=== PATIENT | female | born 1980 | race Hispanic/Latino ===

== ENCOUNTER 2018-11-22 11:41 | Emergency (ER) | payer BC ==
[~2018-11-22] VITALS: Ht 170.2 cm; Wt 59.0 kg
--- OUTSIDE RECORDS SUMMARY | 2018-11-22 11:44 | XMS REPORT | Summary of Care ---
Author Author JORDAN ANDERSEN M.D. Organization Unknown Address [facility] Phone Unavailable Care Team Providers Care Oil Field Rig Builder Name Role Phone JORDAN ANDERSEN M.D. 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 * Start : 20-Jul-2014 Active Escitalopram Oxalate 10 MG Oral Tablet TAKE 1 TABLET DAILY. * Quantity: 90 Refills: 1 JORDAN ANDERSEN M.D. * Start : 20-Jul-2014 Active Tecfidera * Refills: 0 Active Allergies and Adverse Reactions Name Dates Details No Known Drug Allergies (Allergy) Status: Active Procedures Procedure Dates Details History of Appendectomy Completed Immunization Name Dates Details Immunizations not documented Family History Name Dates Details Family history of hypertension (V17.49, Z82.49) Status: Active Name Dates Details Family history of cardiac disorder (V17.49, Z82.49) Status: Active Social History Name Dates Details - Status: Name Dates Details Never smoker Vital Signs Date Test Result Details No Known Vitals to report Results Date Description Value Details Results not documented Plan of Care Name Dates Details Planned Observations Planned Goals not documented Instructions Name Dates Details Instructions not documented Encounters Appointment; DIPTI CHAVIRA M.D. Encounter Diagnosis: Problem not documented On: 20-Feb-2016 10:30 Appointment; DIPTI CHAVIRA M.D. Encounter Diagnosis: Problem not documented On: 19-Mar-2016 9:00 Appointment; DIPTI CHAVIRA M.D. Encounter Diagnosis: Problem not documented On: 02-Apr-2016 17:00 Appointment; JORDAN ANDERSEN M.D. Encounter Diagnosis: Problem not documented On: 06-Oct-2017 14:30
--- OUTSIDE RECORDS SUMMARY | 2018-11-22 11:44 | XMS REPORT ---
Author Author Nayana Chin Organization [employer] Address Unknown Phone Unavailable Care Team Providers Care Fleet Service Clerk Name Role Phone Nayana Chin Unavailable Allergies, Adverse Reactions, Alerts Substance Reaction Event Type N.K.D.A. Info Not Available Non Drug Allergy Problems Problem Type Condition Code Onset Dates Condition Status Problem Multiple sclerosis G35 Active Problem Low vitamin D level E55.9 Active Problem Anxiety F41.9 Active Assessment Anxiety F41.9 Active Assessment Low vitamin D level E55.9 Active Assessment Multiple sclerosis G35 Active Medications Medication Code System Code Instructions Start Date End Date Status Dosage Tecfidera ND 42241872521 240 MG Orally Twice a day Active 1 capsule Lexapro [facility] 83477443109 10 MG Orally Once a day Active 1 tablet Ergocalciferol [facility] 59914837934 84437 UNIT Orally once a week August 20, 2017 November 18, 2017 Active 1 capsule Vital Signs Date/Time: August 20, 2017 BMI 24.18 Index Weight 154.4 lbs Height 67 in Temperature 98.3 F Cardiac Monitoring Heart Rate 74 /min Blood Pressure Diastolic 79 mm Hg Blood Pressure Systolic 119 mm Hg Results No Known Results Summary Purpose [employer] Submission
--- OUTSIDE RECORDS SUMMARY | 2018-11-22 11:44 | XMS REPORT | Encounter Summary ---
Author Organization Unknown Address [address] [place] [id number] Phone [phone] Reason for Visit Medical Complaint Instructions 1. Dizziness dizziness: care instructions 2. Unsteady gait Discussion Note: None recorded. Plan of Care Reminders Provider Appointments None recorded. Lab None recorded. Referral None recorded. Procedures None recorded. Surgeries None recorded. Imaging None recorded. Medications Name Start Date escitalopram 10 mg tablet TK 1 T PO QD Tecfidera 240 mg capsule,delayed release Medications Administered None recorded. Vitals Height Weight BMI Blood Pressure 5 ft 7 in 137 lbs 21.5 kg/m2 102/70 mm[Hg] Lab Results None recorded. Allergies Code Code System Name Reaction Severity Status Onset NKDA Problems Name Status Onset Date Source Multiple Sclerosis Active 11/16/2018 Procedures Date Name Performed by Appendectomy Information not available Vaccine List None recorded. Social History Smoking Status Never Smoker Past Encounters 11/16/2018 Dizziness; Unsteady Gait Renetta Salazar [facility]-C: [address] [place] [address], Ph. History of Present Illness Sqzid-Dxjjirziia-Pvewcvh Reported By: Patient HPI: Location: ; dizziness and unsteady gait occurs intermittently througout the day and might last from mintues to the whole day. Symptoms got worse last 2 days and occurs even when sitting at rest. Quality: ; denies nasal congestion. Duration: 4days. Onset/Timing: gradual. Context: no sick contacts, non-smoker. Associated Symptoms: no shortness of breath, no wheezing, no vomiting, no diarrhea, no rash, no fever, no muscle aches, no headache Review of Systems:ROS as noted in the HPI Review of Systems Basic Reported By: Patient Physical Exam Adult Basic, Adult Female Complete Reported By: Patient Constitutional: General Appearance: well-nourished, well-developed. Level of Distress: NAD. Ambulation: ambulating normally Psychiatric: Mental Status: active and alert. Orientation: to time, to place, to person Kei-Spwo-Yipyo-Throat: Ears: no lesions on external ear, no outer ear tenderness, EACs clear, TMs clear. Hearing: hearing decreased. Nose: no lesions on external nose, nares patent, no septal deviation, nasal passages clear, no sinus tenderness, no nasal discharge. Oropharynx: moist mucous membranes, no erythema, no exudates, tonsils not enlarged Lungs: Respiratory effort: no dyspnea, no tachypnea, no use of accessory muscles, no intercostal retractions. Auscultation: breath sounds normal Cardiovascular: Heart Auscultation: RRR, no murmurs Neurologic: Gait and Station: ; slightly waddling with eye close. Cranial Nerves: grossly intact. Sensation: grossly intact. Coordination and Cerebellum: eivild-nz-xrdn intact, no tremor
--- OUTSIDE RECORDS SUMMARY | 2018-11-22 11:44 | XMS REPORT ---
Author Author [facility] Address Unknown Phone Unavailable Care Team Providers Care Agriculture Specialist Name Role Phone Unavailable Unavailable Problems This patient has no known problems. Allergies, Adverse Reactions, Alerts This patient has no known allergies or adverse reactions. Medications This patient has no known medications. Encounters Start Date/Time End Date/Time Encounter Type Admission Type Attending [facility] Facility Care Department Encounter ID 2018-11-20 13:42:51 Outpatient [id number] 2018-11-18 14:30:00 2018-11-18 14:30:00 Emergency E [id number]
--- OUTSIDE RECORDS SUMMARY | 2018-11-22 11:44 | XMS REPORT | Continuity of Care Document ---
Author Author [facility] Address Unknown Phone Unavailable Problems Problem Status Onset Date Classification Date Reported Comments Source Unsteady gait 11/17/2018 Diagnosis 11/17/2018 [facility] Dizziness 11/17/2018 Diagnosis 11/17/2018 [facility] Multiple Sclerosis 11/16/2018 Problem 11/17/2018 [facility] Multiple sclerosis Active Problem 08/21/2017 [facility] Low vitamin D level Active Problem 08/21/2017 [facility] Anxiety Active Problem 08/21/2017 [facility] Medications Medication Details Route Status Patient Instructions Ordering Provider Order Date Source Ergocalciferol 1 capsule Orally Active 13887 UNIT Orally once a week [facility] 08/20/2017 [facility] Tecfidera 1 capsule Orally Active 240 MG Orally Twice a day [facility] Lexapro 1 tablet Orally Active 10 MG Orally Once a day [facility] Escitalopram 10 MG Oral Tablet escitalopram 10 mg tablet TK 1 T PO QD Active [facility] dimethyl fumarate 240 MG Delayed Release Oral Capsule [Tecfidera] Tecfidera 240 mg capsule,delayed release Active [facility] Allergies, Adverse Reactions, Alerts Substance Category Reaction Severity Reaction type Status Date Reported Comments Source N.K.D.A. Adverse Reaction Info Not Available Adverse Reaction Active 08/20/2017 [facility] Immunizations Immunization Date Given Site Status Last Updated Comments Source Results Order Name Results Value Reference Range Date Interpretation Comments Source Vital Signs Vital Sign Value Date Comments Source Diastolic (mm Hg) 70 11/16/2018 [facility] Height 67 11/16/2018 [facility] Systolic (mm Hg) 102 11/16/2018 [facility] Weight 137 11/16/2018 [facility] Weight 154.4 08/20/2017 [facility] Height 67 08/20/2017 [facility] Temperature Oral (F) 98.3 F 08/20/2017 [facility] Heart Rate 74 08/20/2017 [facility] Diastolic (mm Hg) 79 08/20/2017 [facility] Systolic (mm Hg) 119 08/20/2017 [facility] Encounters Location Location Details Encounter Type Encounter Number Reason For Visit Attending Provider ADM Date DC Date Status Source [place] - [facility] - [id number] Salazar, [employer]-C: [address] [place] [address], Ph. [id number] Renetta Salazar 11/16/2018 [facility] Procedures Procedure Code Date Perfomer Comments Source Appendectomy [facility]
[2018-11-22] MEDS ORDERED: DIAZEPAM 5 MG TAB PO ONE (12:02)
[2018-11-22] MEDS ORDERED: METHYLPREDNISOLONE SOD SUCC 125 MG/2ML VIAL IM ONE (12:15)
[2018-11-22] MEDS ORDERED: ONDANSETRON HCL 4 MG ORAL DISINTEGRATING TAB PO ONE (12:15)
[2018-11-22] MEDS ORDERED: ZOFRAN4 MG SL (12:59)
[2018-11-22] MEDS ORDERED: VALIUM5 MG PO (12:59)
== END 2018-11-22 13:34 | disposition home or self-care (01) ==
LOC: ER 11:41
DX: R42 Dizziness and giddiness (principal); G35 Multiple sclerosis; Z83.3 Family history of diabetes mellitus; Z82.49 Family history of ischemic heart disease and other diseases of the circulatory system; H91.8X1 Other specified hearing loss, right ear; R29.810 Facial weakness
CPT/HCPCS: 99283; J2930; Q0162